=== PATIENT | female | born 1945 | race Caucasian/White ===

== ENCOUNTER 2016-05-17 04:00 | Emergency (ER) | payer OTHER ==
[2016-05-17] MEDS ORDERED: ACETAMINOPHEN 325 MG TABLET ONE (04:19)
[2016-05-17] MEDS ORDERED: IBUPROFEN 600 MG TABLET ONE (04:19)
[2016-05-17] MEDS ORDERED: AZITHROMYCIN 250 MG TABLET ONE (04:19)
[2016-05-17] MEDS ORDERED: DEXAMETHASONE SOD PHOS 10 MG/1 ML VIAL ONE (04:19)
--- NOTE | 2016-05-17 08:20 | RAD ---
Exam: Two-view chest COMPARISON: 05/17/2015, 07/07/2014, 07/05/2014. INDICATION: Shortness of breath for 3 days. FINDINGS: PA and lateral views of the chest were obtained. Cardiac silhouette is within normal limits and stable. Relative hyperlucency of the right upper lobe is noted and unchanged. There is chronic bronchial wall thickening elsewhere. There is no focal airspace disease or pleural effusion. Atheromatous aorta. There is stable sagittal alignment of the thoracic spine with mild lordosis within the mid to lower thoracic spine and kyphosis of the thoracolumbar junction. Bones of the chest wall otherwise unremarkable. IMPRESSION: Stable exam since 07/05/2014 without acute pulmonary process or significant interval change.
== END 2016-05-17 07:38 | disposition home or self-care (01) ==
LOC: ED 04:00
DX: J06.9 Acute upper respiratory infection, unspecified (principal)
CPT/HCPCS: 71020; 87804; 99283 ×2; J1100; A9270 ×3